=== PATIENT | female | born 1945 | race Caucasian/White ===

== ENCOUNTER 2020-02-05 20:33 | Inpatient (IN) ==
[~2020-02-05 20:33] MED LIST: *HR* Etomidate 20 MG/10 ML AMPUL IVP ONE; *HR* Succinylcholine 200 MG/10 ML VIAL IVP ONE
[2020-02-05] MEDS ORDERED: Morphine Sulfate 2 MG/ML SYRINGE IVP ONE (20:58)
[2020-02-05] MEDS ORDERED: Ondansetron 4 MG/2 ML VIAL IVP ONE ×2 (20:58→21:50)
[2020-02-05] MEDS ORDERED: 0.9 % Sodium Chloride 1,000 ML IVC ONE (20:58)
[2020-02-05 21:24] LABS: Basophils # 0.1 K/mcL (0.0-0.2); Basophils % 0.4 %; Eosinophils # 0.2 K/mcL (0.0-0.6); Eosinophils % 2.1 %; Hemoglobin 17.5 g/dL (11.5-15.4); Immature Granulocytes % 0.3 % (0-4); Lymphocytes # 2.3 K/mcL (0.6-4.6); Mean Corpuscular HGB Conc 33.7 g/dL (31.6-35.5); Mean Corpuscular Hemoglobin 30.5 pg (28.0-33.3); Mean Corpuscular Volume 90.8 fL (83.0-100.0); Mean Platelet Volume 10.8 fL (9.4-12.4); Monocytes # 0.4 K/mcL (0.0-1.3); Monocytes % 3.4 %; Neutrophils # 8.5 K/mcL (1.6-8.9); Platelet Count 230 K/mcL (140-400); Red Blood Count 5.73 M/mcL (3.82-4.97); Red Cell Distribution Width 13.1 % (11.5-14.5); Segmented Neutrophils % 73.8 %; White Blood Count 11.5 K/mcL (4.3-11.1)
[2020-02-05 21:29] LABS: Prothrombin Time 11.2 Seconds (9.4-12.1)
[2020-02-05 21:31] LABS: Activated Partial Thrombo Time 26.1 Seconds (26.0-36.0)
[2020-02-05] MEDS ORDERED: *HR* HYDROmorphone (PF) 1 MG/ML SYRINGE IVP ONE (21:51)
[2020-02-05 21:55] LABS: Alanine Aminotransferase 36 Units/L (7-52); Albumin 5.3 g/dL (3.5-5.7); Albumin/Globulin Ratio 1.8 (1.1-2.2); Alkaline Phosphatase 103 Units/L (34-104); Aspartate Amino Transferase 42 Units/L (13-39); BUN/Creatinine Ratio 21 (6-26); Bilirubin,Direct 0.3 mg/dL (0.0-0.2); Bilirubin,Indirect 1.7 mg/dL (0.0-1.0); Blood Urea Nitrogen 20 mg/dL (8-23); Calcium 10.4 mg/dL (8.6-10.3); Carbon Dioxide 20 mEq/L (23-29); Chloride 100 mEq/L (98-107); Glucose 170 mg/dL (70-105); Lipase 31 Units/L (11-82); Osmolality,Calculated 289 (280-300); Potassium 3.5 mEq/L (3.5-5.1); Sodium 136 mEq/L (136-145); Total Protein 8.3 g/dL (6.4-8.9); Troponin I 0.09 ng/mL (< 0.04); eGFR For African Americans > 60 (> 60); eGFR For Non-African Americans 56 (> 60)
[2020-02-05] MEDS ORDERED: Piperacillin/Tazobactam 3.375 GM in 0.9 % Sodium Chloride Mini Bag 100 ML IVPB ONE (22:07)
[2020-02-05] MEDS ORDERED: Isovue-370 500 ML BOTTLE IVP ONE (22:07)
[2020-02-05] MEDS ORDERED: Amiodarone Premix 150 MG/100 ML BAG IVPB ONE (22:09)
[2020-02-05] MEDS ORDERED: Amiodarone Premix 360 MG/200 ML BAG IVC ONE (22:25)
[2020-02-05] MEDS: FentaNYL (PF) 1,000 MCG/100 ML IV.SOLN IVC SCH (23:05)
[2020-02-05 23:21] LABS: ABG Base Excess -5 mEq/L (-2 to 3); ABG HCO3 22 mEq/L (21-27); ABG Oxygen Saturation 93 % (95-98); ABG PCO2 46 mmHg (35-45); ABG PH 7.28 pH Units (7.32-7.45); ABG PO2 77 mmHg (85-104); ABG TCO2 23 mEq/L (20-26); Blood Gas Modality ASSIST CONTROL; Blood Gas VT 500 cc
[2020-02-06] MEDS ORDERED: Furosemide 40 MG/4 ML VIAL IVP ONE (00:12)
[2020-02-06] MEDS ORDERED: *HR* Heparin 5,000 UNIT/ML VIAL IVP ONE (00:28)
[2020-02-06] MEDS ORDERED: *HR* Heparin 5,000 UNIT/ML VIAL IVP PRN ×2 (00:28)
[2020-02-06 00:45] LABS: Bacteria,Urine Few per hpf (None-Few); Bilirubin,Urine Negative (Negative); Blood,Urine Moderate (Negative); Clarity,Urine Clear (Clear); Color,Urine Light-Yellow (Yellow); Glucose,Urine (UA) 30 mg/dL (Normal); Ketones,Urine Negative (Negative); Leukocyte Esterase,Urine Trace (Negative); Nitrite,Urine Negative (Negative); PH,Urine 6.5 pH Units (5.0-8.0); Protein,Urine 200 mg/dL (Neg-Trace); RBC,Urine 15-30 per hpf (0-3); Specific Gravity,Urine > 1.030 (1.010-1.025); Squamous Epithelial Cell,Urine Few per hpf (None-Few); Urobilinogen,Urine Normal (Normal)
[2020-02-06] MEDS: Heparin 25,000UNIT/250ML 1/2NS 25,000 UNIT/250 ML IV.SOLN IVC SCH (00:55)
[2020-02-06] MEDS ORDERED: Naloxone 0.4 MG/ML INJ IVP PRN (00:56)
[2020-02-06] MEDS ORDERED: Perflutren Lipid Microsphere 1.3 ML in 0.9 % Sodium Chloride 8.7 ML IVP PRN (01:00)
[2020-02-06] MEDS ORDERED: Artificial Tears SOLN 15 ML BOTTLE BOTH EYES PRN (02:40)
[2020-02-06] MEDS ORDERED: Chlorhexidine Rinse 15 ML MOUTHWASH MM SCH ×2 (02:45→09:00)
[2020-02-06 03:12] LABS: Basophils % 0.1 %; Eosinophils % 0.1 %; Hematocrit 54.2 % (35.3-44.9); Hemoglobin 17.9 g/dL (11.5-15.4); Immature Granulocytes % 0.2 % (0-4); Lymphocytes # 0.7 K/mcL (0.6-4.6); Lymphocytes % 4.5 %; Mean Corpuscular Hemoglobin 31.1 pg (28.0-33.3); Mean Corpuscular Volume 94.1 fL (83.0-100.0); Mean Platelet Volume 10.9 fL (9.4-12.4); Monocytes # 0.5 K/mcL (0.0-1.3); Monocytes % 3.1 %; Neutrophils # 14.9 K/mcL (1.6-8.9); Platelet Count 177 K/mcL (140-400); Red Blood Count 5.76 M/mcL (3.82-4.97); Red Cell Distribution Width 13.3 % (11.5-14.5); White Blood Count 16.2 K/mcL (4.3-11.1)
[2020-02-06 03:57] LABS: Alanine Aminotransferase 31 Units/L (7-52); Albumin 4.4 g/dL (3.5-5.7); Albumin/Globulin Ratio 1.7 (1.1-2.2); Alkaline Phosphatase 91 Units/L (34-104); Aspartate Amino Transferase 60 Units/L (13-39); BUN/Creatinine Ratio 23 (6-26); Bilirubin,Direct 0.3 mg/dL (0.0-0.2); Bilirubin,Indirect 2.1 mg/dL (0.0-1.0); Bilirubin,Total 2.4 mg/dL (0.3-1.0); Blood Urea Nitrogen 21 mg/dL (8-23); Calcium 9.2 mg/dL (8.6-10.3); Carbon Dioxide 18 mEq/L (23-29); Chloride 103 mEq/L (98-107); Globulin 2.6 g/dL (2.4-3.5); Glucose 164 mg/dL (70-105); Magnesium 2.2 mg/dL (1.6-2.6); Osmolality,Calculated 291 (280-300); Potassium 3.8 mEq/L (3.5-5.1); Sodium 137 mEq/L (136-145); eGFR For African Americans > 60 (> 60); eGFR For Non-African Americans > 60 (> 60)
[2020-02-06] MEDS: Artificial Tears SOLN 15 ML BOTTLE BOTH EYES SCH ×3 (04:25→09:51)
[2020-02-06] MEDS: FentaNYL (PF) 1,000 MCG/100 ML IV.SOLN IVC SCH (04:26)
[2020-02-06] MEDS: Amiodarone Premix 360 MG/200 ML BAG IVC SCH ×2 (04:42→17:00)
[2020-02-06 05:15] LABS: ABG Base Excess -2 mEq/L (-2 to 3); ABG HCO3 22 mEq/L (21-27); ABG Oxygen Saturation 100 % (95-98); ABG PCO2 35 mmHg (35-45); ABG PH 7.41 pH Units (7.32-7.45); ABG PO2 404 mmHg (85-104); ABG TCO2 23 mEq/L (20-26); Blood Gas Modality ASSIST CONTROL; Blood Gas VT 500 cc
[2020-02-06] MEDS ORDERED: Famotidine 20 MG/2 ML VIAL IVP SCH (06:00)
[2020-02-06] MEDS ORDERED: *HR* Metoprolol 5 MG/5 ML VIAL IVP PRN (08:56)
[2020-02-06] MEDS: Furosemide 40 MG/4 ML VIAL IVP SCH ×2 (09:29→18:03)
[2020-02-06 09:39] LABS: Troponin I 0.18 ng/mL (< 0.04)
[2020-02-06] MEDS: Piperacillin/Tazobactam 3.375 GM in 0.9 % Sodium Chloride Mini Bag 100 ML IVPB SCH ×4 (09:42→23:50)
[2020-02-06] MEDS ORDERED: Dexmedetomidine HCl 400 MCG/100 ML MLS IVC ONE (10:39)
[2020-02-06 12:33] LABS: Triiodothyronine (T3) Total 0.8 ng/mL (0.87-1.78)
[2020-02-06 13:40] LABS: Basophils # 0.1 K/mcL (0.0-0.2); Basophils % 0.3 %; Eosinophils % 0.1 %; Hemoglobin 18.1 g/dL (11.5-15.4); Immature Granulocytes % 0.3 % (0-4); Lymphocytes # 0.7 K/mcL (0.6-4.6); Lymphocytes % 4.5 %; Mean Corpuscular HGB Conc 32.8 g/dL (31.6-35.5); Mean Corpuscular Hemoglobin 30.1 pg (28.0-33.3); Mean Corpuscular Volume 91.7 fL (83.0-100.0); Mean Platelet Volume 11.4 fL (9.4-12.4); Monocytes # 0.7 K/mcL (0.0-1.3); Monocytes % 4.9 %; Neutrophils # 13.7 K/mcL (1.6-8.9); Platelet Count 196 K/mcL (140-400); Red Blood Count 6.01 M/mcL (3.82-4.97); Red Cell Distribution Width 13.6 % (11.5-14.5); Segmented Neutrophils % 89.9 %; White Blood Count 15.2 K/mcL (4.3-11.1)
[2020-02-06 13:41] LABS: Hematocrit 55.1 % (35.3-44.9)
[2020-02-06] MEDS: Famotidine 20 MG TABLET PO SCH (15:49)
[2020-02-06] MEDS ORDERED: *HR* Metoprolol 5 MG/5 ML VIAL IVP ONE (22:47)
[2020-02-07] MEDS ORDERED: Furosemide 40 MG/4 ML VIAL IVP ONE
[2020-02-07] MEDS: Heparin 25,000UNIT/250ML 1/2NS 25,000 UNIT/250 ML IV.SOLN IVC SCH (04:09)
[2020-02-07] MEDS ORDERED: Acetaminophen IV 1,000 MG/100 ML INFUS..BTL IVPB ONE (04:10)
[2020-02-07 04:44] LABS: ABG Base Excess -1 mEq/L (-2 to 3); ABG HCO3 22 mEq/L (21-27); ABG Oxygen Saturation 93 % (95-98); ABG PCO2 32 mmHg (35-45); ABG PH 7.44 pH Units (7.32-7.45); ABG PO2 62 mmHg (85-104); ABG TCO2 23 mEq/L (20-26)
[2020-02-07 05:59] LABS: VBG Ionized Calcium 0.94 mmol/L (1.15-1.35)
[2020-02-07 06:01] LABS: Hematocrit 54.1 % (35.3-44.9); Hemoglobin 18.6 g/dL (11.5-15.4); Mean Corpuscular HGB Conc 34.4 g/dL (31.6-35.5); Mean Corpuscular Hemoglobin 31.6 pg (28.0-33.3); Mean Platelet Volume 11.7 fL (9.4-12.4); Platelet Count 192 K/mcL (140-400); Red Blood Count 5.88 M/mcL (3.82-4.97); Red Cell Distribution Width 13.7 % (11.5-14.5)
[2020-02-07 06:23] LABS: Monocytes # 0.4 K/mcL (0.0-1.3); Neutrophils # 17.2 K/mcL (1.6-8.9); Platelet Estimate Normal (Normal)
[2020-02-07] MEDS: Calcium Gluconate 1gm/50mL 1 GM/50 ML BAG IVPB SCH ×2 (06:29→07:49)
[2020-02-07 06:39] LABS: Albumin 3.9 g/dL (3.5-5.7); Albumin/Globulin Ratio 1.6 (1.1-2.2); Bilirubin,Total 3.3 mg/dL (0.3-1.0); Calcium 8.8 mg/dL (8.6-10.3); Globulin 2.4 g/dL (2.4-3.5); Magnesium 1.9 mg/dL (1.6-2.6); Phosphorous 4.9 mg/dL (2.7-4.5); Potassium 3.9 mEq/L (3.5-5.1); Total Protein 6.3 g/dL (6.4-8.9); Troponin I 0.45 ng/mL (< 0.04)
[2020-02-07] MEDS: Piperacillin/Tazobactam 3.375 GM in 0.9 % Sodium Chloride Mini Bag 100 ML IVPB SCH (07:50)
[2020-02-07] MEDS: Famotidine 20 MG TABLET PO SCH ×2 (07:50→11:57)
[2020-02-07 10:44] LABS: INR 1.8; Prothrombin Time 20.2 Seconds (9.4-12.1)
[2020-02-07] MEDS ORDERED: Heparin 1,000 UNITS/500 mL 500 ML ONE (11:54)
[2020-02-07] MEDS ORDERED: Albumin Human 5% 25.0 GM/500 ML IV.SOLN ONE (11:56)
[2020-02-07] MEDS ORDERED: *HR* Vasopressin 20 UNIT/ML VIAL ONE (11:56)
[2020-02-07] MEDS ORDERED: Lidocaine HCL 4 ML Topical Solution (Laryng-O-Jet Kit Sterile Pak) TP ONE (12:06)
[2020-02-07] MEDS ORDERED: *HR* Rocuronium Bromide 50 MG/5 ML VIAL ONE (12:06)
[2020-02-07] MEDS ORDERED: *HR* Succinylcholine 200 MG/10 ML VIAL IVP ONE (12:06)
[2020-02-07] MEDS ORDERED: Ondansetron 4 MG/2 ML VIAL ONE (12:06)
[2020-02-07] MEDS ORDERED: Dexamethasone 4 MG/ML VIAL ONE (12:06)
[2020-02-07] MEDS ORDERED: Lidocaine -MPF 2% 2 ML VIAL ONE ×2 (12:06→12:47)
[2020-02-07] MEDS ORDERED: *HR* FentaNYL (PF) 100 MCG/2 ML VIAL ONE (12:07)
[2020-02-07] MEDS ORDERED: *HR* Propofol 200 MG/20 ML VIAL IVP ONE (12:07)
[2020-02-07] MEDS ORDERED: CefOXitin 1,000 MG VIAL ONE (12:54)
[2020-02-07] MEDS: *HR* FentaNYL (PF) 100 MCG/2 ML VIAL IVP PRN ×2 (13:03→15:40)
[2020-02-07] MEDS ORDERED: *HR* Norepinephrine 4 MG/4 ML VIAL IVC ONE (13:20)
[2020-02-07] MEDS ORDERED: Lacri-Lube 3.5 GM TUBE ONE (13:38)
[2020-02-07 14:36] VITALS: BP 121/48
[2020-02-07] MEDS ORDERED: *HR* LORazepam 2 MG/ML VIAL IVP PRN (14:41)
[2020-02-07] MEDS ORDERED: Atropine Sulfate 1% 40 DROP/2 ML BOTTLE SL PRN (14:42)
[2020-02-07] MEDS ORDERED: Haloperidol Lactate 5 MG/ML VIAL IVP PRN (14:42)
== END 2020-02-07 17:48 | disposition expired | DRG 853 ==
LOC: EMEROOARM 20:33 → ICNU 02-06 00:59
PROVIDERS: ADMIT Internal Medicine; ATTEND Internal Medicine